=== PATIENT | female | born 1975 | race African-American/Black ===

== ENCOUNTER 2018-08-21 13:27 | Emergency (ER) | payer MEDICAID, OTHER ==
[2018-08-21] MEDS ORDERED: Ketorolac 60 MG/2 ML SDV IM ONE (14:30)
--- NOTE | 2018-08-21 14:30 | EDM.PDOC ---
ED HPI GENERAL MEDICAL PROBLEM - General Chief Complaint: Abdominal Pain Stated Complaint: RIGHT ABDOMINAL PAIN Time Seen by Provider: 08/21/18 13:40 Source of Information: Reports: Patient History Limitations: Reports: No Limitations - History of Present Illness Onset Date: 08/09/18 Onset Time: 09:00 Duration: Intermittent Location: Reports: Abdomen (rlq pain/sight suprapubic region) Quality: Reports: Ache, Dull Severity: Mild Improves with: Reports: None Worsens with: Reports: None Associated Symptoms: Reports: No Other Symptoms, Other (no vaginal discharge or odor). Denies: Fever/Chills, Nausea/Vomiting Right Lower Abdominal Pain Score (Numeric/FACES): 6 - Related Data Allergies Allergy/AdvReac Type Severity Reaction Status Date / Time No Known Allergies Allergy Verified 08/21/18 13:34 Home Meds: Home Meds . [No Known Home Meds] 08/21/18 [History] Past Medical History - Past Health History Medical/Surgical History: Denies Medical/Surgical History Social & Family History - Tobacco Use Smoking Status *Q: Never Smoker - Recreational Drug Use Recreational Drug Use: No ED ROS GENERAL - Review of Systems Review Of Systems: See Below Constitutional: Reports: No Symptoms. Denies: Fever, Chills, Weakness, Decreased Appetite HEENT: Reports: No Symptoms Respiratory: Reports: No Symptoms Cardiovascular: Reports: No Symptoms Endocrine: Reports: No Symptoms GI/Abdominal: Reports: Abdominal Pain (right upper suprapubic pain) : Reports: No Symptoms. Denies: Dysuria, Flank Pain Musculoskeletal: Reports: No Symptoms Skin: Reports: No Symptoms Neurological: Reports: No Symptoms Psychiatric: Reports: No Symptoms Hematologic/Lymphatic: Reports: No Symptoms Immunologic: Reports: No Symptoms ED EXAM, GI/ABD - Physical Exam Exam: See Below Exam Limited By: No Limitations General Appearance: Alert, WD/WN, No Apparent Distress Neck: Normal Inspection, Supple, Non-Tender, Full Range of Motion Respiratory/Chest: No Respiratory Distress, Lungs Clear, Normal Breath Sounds, No Accessory Muscle Use, Chest Non-Tender Cardiovascular: Normal Peripheral Pulses, Regular Rate, Rhythm, No Edema, No Gallop, No JVD, No Murmur, No Rub GI/Abdominal Exam: Normal Bowel Sounds, Soft, Non-Tender, No Organomegaly, No Distention, No Abnormal Bruit, No Mass, Pelvis Stable Back Exam: Normal Inspection, Full Range of Motion Extremities: Normal Inspection, Normal Range of Motion, Non-Tender, No Pedal Edema, Normal Capillary Refill Neurological: Alert, Oriented, Normal Cognition, Normal Gait, Normal Reflexes, No Motor/Sensory Deficits Psychiatric: Normal Affect, Normal Mood Skin Exam: Warm, Dry, Intact, Normal Color, No Rash Lymphatic: No Adenopathy Course - Vital Signs Last Recorded V/S: Last Vital Signs Temp 97.9 F 08/21/18 13:32 Pulse 95 08/21/18 13:32 Resp 16 08/21/18 13:32 BP 126/67 08/21/18 13:32 Pulse Ox 99 08/21/18 13:32 - Orders/Labs/Meds Orders: Active Orders 24 hr Category Date Time Status KUB [Abdomen 1V Flat] [CR] Stat Exams 08/21/18 13:55 Taken Labs: Laboratory Tests 08/21/18 08/21/18 Range/Units 13:35 13:35 Urine Color Yellow (Yellow) Urine Appearance Clear (Clear) Urine pH 5.5 (5.0-8.0) Ur Specific [place] > or = 1.030 (1.005-1.030) Urine Protein Negative (Negative) Urine Glucose (UA) Negative (Negative) Urine Ketones Trace H (Negative) Urine Occult Blood 2+ H (Negative) Urine Nitrite Negative (Negative) Urine Bilirubin Negative (Negative) Urine Urobilinogen 0.2 (0.2-1.0) Ur Leukocyte Esterase Negative (Negative) Urine RBC 0-5 (0-5) /hpf Urine WBC 0-5 (0-5) /hpf Ur Epithelial Cells 0-5 (0-5) /hpf Urine Bacteria Few (FEW) /hpf Urine Mucus Few (FEW) /hpf Urine HCG, Qual Negative (NEGATIVE) Meds: Medications Discontinued Medications Generic Name Dose Route Start Last Admin Trade Name Freq PRN Reason Stop Dose Admin Ketorolac Tromethamine 60 mg 08/21/18 14:30 08/21/18 14:47 Toradol IM 08/21/18 14:31 60 mg ONETIME ONE Administration Lactulose 20 gm 08/21/18 14:34 08/21/18 14:48 Cephulac PO 08/21/18 14:35 20 gm ONETIME ONE Administration - Re-Assessments/Exams Free Text/Narrative Re-Assessment/Exam: 08/21/18 14:53 Her urinalysis did have + 2 blood otherwise unremarkable. I am unable to obtain a ultrasound because her symptoms are not urgent. I will instruct her to follow-up with her equities trader for further evaluation. I feel that her pain is probably related to ovarian cysts. Differential diagnosis includes but are not limited to PID and STD ovarian cyst and UTI. Instructed patient returned from return for new or acutely worsening symptoms. Departure - Departure Time of Disposition: 14:55 Disposition: Home, Self-Care 01 Condition: Good Clinical Impression: Suprapubic pain - Discharge Information *PRESCRIPTION DRUG MONITORING PROGRAM REVIEWED*: Not Applicable *COPY OF PRESCRIPTION DRUG MONITORING REPORT IN PATIENT LAUREEN: Not Applicable Instructions: Abdominal Pain, Adult, Pelvic Pain, Female, Pain Without a Known Cause Referrals: PCP,None [Primary Care Provider] - Forms: ED Department Discharge Additional Instructions: Given diagnosed with suprapubic pain. I feel your pain is probably due to an ovarian cyst. Her KUB did reveal moderate constipation. You should follow-up with her PCP or equities trader. Return to the emergency room for any new or acutely worsening symptoms. - My Orders Last 24 Hours: My Active Orders 08/21/18 13:55 KUB [Abdomen 1V Flat] [CR] Stat - Assessment/Plan Last 24 Hours: My Active Orders 08/21/18 13:55 KUB [Abdomen 1V Flat] [CR] Stat
[2018-08-21] MEDS ORDERED: Lactulose Soln 10 GM/15 ML 30 ML UD Cup PO ONE (14:34)
--- NOTE | 2018-08-22 06:44 | CR ---
Abdomen: Supine view of the abdomen was obtained. Comparison: No previous abdominal x-ray. Bowel gas pattern is normal. Calcification is seen within the left pelvis compatible with phlebolith. Bony structures are unremarkable. Impression: 1. Unremarkable supine abdominal x-ray. Diagnostic code #1
== END 2018-08-21 15:00 | disposition home or self-care (01) ==
LOC: JD.ED 13:27
DX: R10.31 Right lower quadrant pain (principal)
CPT/HCPCS: 74018; 81001; 81025; 96372; 99284; A9270; J1885; 99283

== ENCOUNTER 2020-01-20 22:31 | Emergency (ER) | payer MEDICAID, OTHER ==
--- NOTE | 2020-01-20 23:07 | EDM.PDOC ---
ED HPI GENERAL MEDICAL PROBLEM - General Chief Complaint: Back Pain or Injury Stated Complaint: LOWER BACK PAIN Time Seen by Provider: 01/20/20 22:57 - History of Present Illness INITIAL COMMENTS - FREE TEXT/NARRATIVE: 44-year-old female presents the emergency room with low back pain. This started earlier this afternoon after the patient sneezed. The patient has had episodes like this back pain twice in the past the first time was after she changed some bed linens the second time was after she sneezed. The pain is in the lower lumbar area. It is worse on the right side. Patient denies any loss of bowel or bladder control. She has not had any abdominal pain nausea vomiting constipation or diarrhea. The patient denies and she is having her period at this time. Patient denies any other complaints. According to the patient she has been x-rayed for this in the past and it did not shown anything. Treatments CERTIFIED PATHOLOGY ASSISTANT: Reports: Other (see below) Other Treatments CERTIFIED PATHOLOGY ASSISTANT: motrin Lower Back Pain Score (Numeric/FACES): 10 - Related Data Allergies Allergy/AdvReac Type Severity Reaction Status Date / Time No Known Allergies Allergy Verified 08/21/18 13:34 Home Meds: Home Meds . [No Known Home Meds] 08/21/18 [History] Past Medical History - Past Health History Medical/Surgical History: Denies Medical/Surgical History - Past Surgical History Female Surgical History: Reports: Section Social & Family History - Tobacco Use Smoking Status *Q: Never Smoker - Caffeine Use Caffeine Use: Reports: Tea - Recreational Drug Use Recreational Drug Use: No ED ROS GENERAL - Review of Systems Review Of Systems: See Below Constitutional: Reports: No Symptoms HEENT: Reports: Other (Some URI symptoms yesterday and this seems to have resolved) Respiratory: Reports: No Symptoms, Other (She did sneeze yesterday this was thought to be related to her URI symptoms that have since resolved). Denies: Cough, Sputum Cardiovascular: Reports: No Symptoms Endocrine: Reports: No Symptoms GI/Abdominal: Reports: No Symptoms : Reports: No Symptoms Musculoskeletal: Reports: Back Pain Skin: Reports: No Symptoms Neurological: Reports: No Symptoms ED EXAM,LOWER BACK PAIN/INJURY - Physical Exam Exam: See Below Exam Limited By: No Limitations General Appearance: Alert, No Apparent Distress Head: Atraumatic, Normocephalic Neck: Normal Inspection, Supple, Non-Tender, Full Range of Motion Respiratory/Chest: No Respiratory Distress, Lungs Clear, Normal Breath Sounds Cardiovascular: Regular Rate, Rhythm, No Edema, No Murmur GI/Abdominal: Normal Bowel Sounds, Soft, Non-Tender Back Exam: Normal Inspection, Other (Right lumbar paraspinous muscle tenderness and some spasm. Palpation seems to elicit her pain.). No: Vertebral Tenderness Extremities: Normal Inspection, No Pedal Edema Course - Vital Signs Last Recorded V/S: Last Vital Signs Temp 36.4 C 01/20/20 22:48 Pulse 76 01/20/20 22:48 Resp 16 01/20/20 22:48 BP 119/76 01/20/20 22:48 Pulse Ox 99 01/20/20 22:48 - Orders/Labs/Meds Meds: Medications Discontinued Medications Generic Name Dose Route Start Last Admin Trade Name Ray PRN Reason Stop Dose Admin Ketorolac Tromethamine 30 mg 01/20/20 23:24 01/20/20 23:35 Toradol IM 01/20/20 23:25 30 mg ONETIME ONE Administration Ketorolac Tromethamine Confirm 01/20/20 23:34 Toradol Administered 01/20/20 23:35 Dose 30 mg .ROUTE .STK-MED ONE - Re-Assessments/Exams Free Text/Narrative Re-Assessment/Exam: 01/21/20 00:12 Patient received some Toradol 30 mg IM and is doing somewhat better. She would like to go home and get some rest. Departure - Departure Time of Disposition: 00:12 Disposition: Home, Self-Care 01 Clinical Impression: Low back pain - Discharge Information Referrals: PCP,None [Primary Care Provider] - Forms: ED Department Discharge Additional Instructions: Return to the emergency room with any questions problems or worsening symptoms. Starting tomorrow morning around 9 or 10:00 you can use ibuprofen as needed. Take the ibuprofen with meals. Follow-up in the hospital clinic this next week for recheck if needed their phone number is [phone]. Sepsis Event Note (ED) - Evaluation Sepsis Screening Result: No Definite Risk - Focused Exam Vital Signs: Vital Signs Temp Pulse Resp BP Pulse Ox 01/20/20 22:48 36.4 C 76 16 119/76 99
[2020-01-20] MEDS ORDERED: Ketorolac 30 MG/ML SDV IM ONE (23:24)
[2020-01-20] MEDS ORDERED: Ketorolac 30 MG/ML SDV ONE (23:34)
== END 2020-01-21 00:41 | disposition home or self-care (01) ==
LOC: JD.ED 22:31
DX: M54.5 Low back pain (principal); M62.830 Muscle spasm of back; Z98.890 Other specified postprocedural states
CPT/HCPCS: 96372; 99283; J1885

== ENCOUNTER 2020-06-29 10:38 | Emergency (ER) | payer MEDICAID, OTHER ==
--- NOTE | 2020-06-29 11:21 | EDM.PDOC ---
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 She has pain to her right shoulder and it radiates to her neck. She tells me she has a history of bulging discs in her neck. She has no numbness but she does have some tingling to her right shoulder and arm. She is right handed. She has no other injuries. Onset: Sudden Duration: Hour(s): (last night) Location: Reports: Neck, Upper Extremity, Right (shoulder) Quality: Reports: Sharp Severity: Moderate Improves with: Reports: Immobilization Worsens with: Reports: Movement Context: Reports: Trauma (moving a patient) Associated Symptoms: Reports: No Other Symptoms Right Shoulder Pain Score (Numeric/FACES): 9 - Related Data Allergies Allergy/AdvReac Type Severity Reaction Status Date / Time No Known Allergies Allergy Verified 06/29/20 10:52 Home Meds: Home Meds Cyclobenzaprine [Flexeril] 10 mg PO TID PRN #20 tab 06/29/20 [Rx] Past Medical History - Past Health History Medical/Surgical History: Denies Medical/Surgical History - Past Surgical History Female Surgical History: Reports: Section Social & Family History - Tobacco Use Tobacco Use Status *Q: Never Tobacco User Second Hand Smoke Exposure: No - Caffeine Use Caffeine Use: Reports: Coffee - Recreational Drug Use Recreational Drug Use: No Review of Systems - Review of Systems Review Of Systems: See Below Constitutional: Reports: No Symptoms Eyes: Reports: No Symptoms Ears: Reports: No Symptoms Nose: Reports: No Symptoms Mouth/Throat: Reports: No Symptoms Respiratory: Reports: No Symptoms Cardiovascular: Reports: No Symptoms GI/Abdominal: Reports: No Symptoms Genitourinary: Reports: No Symptoms Musculoskeletal: Reports: Neck Pain, Shoulder Pain (right) Neurological: Reports: No Symptoms ED EXAM, GENERAL - Physical Exam Exam: See Below Exam Limited By: No Limitations General Appearance: Alert, No Apparent Distress Ears: Normal External Exam Nose: Normal Inspection Head: Atraumatic, Normocephalic Neck: Tender Lateral (right side) Respiratory/Chest: No Respiratory Distress Extremities: Other (Pain upon palpation to the right shoulder. Good sensation and pulses distally.) Course - Vital Signs Last Recorded V/S: Last Vital Signs Temp 98.0 F 06/29/20 10:49 Pulse 80 06/29/20 10:49 Resp 18 06/29/20 10:49 BP 123/68 06/29/20 10:49 Pulse Ox 100 06/29/20 10:49 - Orders/Labs/Meds Orders: Active Orders 24 hr Category Date Time Status Shoulder Comp Rt [CR] Stat Exams 06/29/20 11:02 Taken - Re-Assessments/Exams Free Text/Narrative Re-Assessment/Exam: 06/29/20 11:44 I ordered an x-ray of her shoulder and there is nothing acute. I will get her on some flexeril and antiinflammatories. Departure - Departure Time of Disposition: 11:45 Disposition: Home, Self-Care 01 Condition: Good Clinical Impression: Right shoulder strain Qualifiers: Encounter type: initial encounter Qualified Code(s): S46.911A - Strain of unspecified muscle, fascia and tendon at shoulder and upper arm level, right arm, initial encounter Cervical strain, acute Qualifiers: Encounter type: initial encounter Qualified Code(s): S16.1XXA - Strain of muscle, fascia and tendon at neck level, initial encounter - Discharge Information *PRESCRIPTION DRUG MONITORING PROGRAM REVIEWED*: Not Applicable *COPY OF PRESCRIPTION DRUG MONITORING REPORT IN PATIENT LAUREEN: Not Applicable Prescriptions: Cyclobenzaprine [Flexeril] 10 mg PO TID PRN #20 tab PRN Reason: Pain Referrals: PCP,None [Primary Care Provider] - Nicolasa Rodriguez NP [Nurse Practitioner] - 1 Week Forms: ED Department Discharge, ED Return to Work/School Form Additional Instructions: Ice your shoulder and neck for 15 minutes 3 times per day for 2 days. Take flexeril 10mg every 8 hours as needed for pain. Also take motrin or aleve for pain. Please return if you are worse. Follow up with Nicolasa Rodriguez within a week. Sepsis Event Note (ED) - Evaluation Sepsis Screening Result: No Definite Risk - Focused Exam Vital Signs: Vital Signs Temp Pulse Resp BP Pulse Ox 06/29/20 10:49 98.0 F 80 18 123/68 100 - My Orders Last 24 Hours: My Active Orders 06/29/20 11:02 Shoulder Comp Rt [CR] Stat - Assessment/Plan Last 24 Hours: My Active Orders 06/29/20 11:02 Shoulder Comp Rt [CR] Stat
--- NOTE | 2020-06-30 11:14 | CR ---
Right shoulder: 3 views of the right shoulder were obtained. Comparison: No previous study. Very small cortical bump is noted of the distal and inferior clavicle which is believed to be incidental. Acromioclavicular joint is otherwise unremarkable. Glenohumeral joint appears normal. No acute fracture, dislocation or other bony abnormality is appreciated. Impression: 1. Nothing acute is seen on 3 view right shoulder study. Diagnostic code #2
== END 2020-06-29 12:00 | disposition home or self-care (01) ==
LOC: JD.ED 10:38
DX: S46.911A Strain of unspecified muscle, fascia and tendon at shoulder and upper arm level, right arm, initial encounter (principal); S16.1XXA Strain of muscle, fascia and tendon at neck level, initial encounter; X50.9XXA Other and unspecified overexertion or strenuous movements or postures, initial encounter
CPT/HCPCS: 73030-26-RT; 73030-RT; 99283

== ENCOUNTER 2023-06-09 12:25 | Emergency (ER) | payer MEDICAID ==
[2023-06-09] MEDS ORDERED: Aspirin 81 MG Tab.Chew PO ONE (13:13)
[2023-06-09 13:35] LABS: BASOPHILS PERCENT AUTO 0.5 % (0.0-1.0); EOSINOPHILS ABSOLUTE AUTO 0.1 K/mm3 (0.0-0.4); EOSINOPHILS PERCENT AUTO 0.9 % (0.0-6.0); HEMATOCRIT 35.3 % (37.0-47.0); HEMOGLOBIN 11.9 gm/dl (12.0-16.0); IMMATURE GRAN ABSOLUTE AUTO 0.02 K/mm3 (0.00-0.05); IMMATURE GRAN PERCENT AUTO 0.3 % (0.0-0.4); LYMPHOCYTES ABSOLUTE AUTO 2.3 K/mm3 (1.0-4.8); LYMPHOCYTES PERCENT AUTO 39.4 % (24.0-44.0); MEAN CORPUSCULAR HEMOGLOBIN 30.7 pg (28.0-32.0); MEAN CORPUSCULAR HGB CONC 33.7 g/dl (32.0-36.0); MEAN PLATELET VOLUME 9.5 fl (9.4-12.3); MONOCYTES ABSOLUTE AUTO 0.4 K/mm3 (0.0-0.8); MONOCYTES PERCENT AUTO 7.2 % (0.0-8.0); NEUTROPHILS PERCENT AUTO 51.7 % (41.0-71.0); PLATELET COUNT,PLT 339 K/mm3 (150-400); RED BLOOD CELL COUNT 3.88 M/mm3 (4.10-5.30); WHITE BLOOD CELL COUNT,WBC 5.86 K/mm3 (3.9-11.3)
[2023-06-09 14:00] LABS: A/G RATIO 0.9 (1-2); ALANINE AMINOTRANSFERASE,ALT 10 U/L (14-59); ALBUMIN 3.5 g/dl (3.4-5.0); ALKALINE PHOSPHATASE 55 U/L (46-116); ANION GAP 11.7 (5-15); ASPARTATE AMNIOTRANSFERASE,AST 14 U/L (15-37); BILIRUBIN TOTAL 0.6 mg/dL (0.2-1.0); BLOOD UREA NITROGEN,BUN 10 mg/dL (7-18); BUN/CREATININE RATIO 14.3 (14-18); CARBON DIOXIDE,CO2 27 mEq/L (21-32); CHLORIDE,CL 104 mEq/L (98-107); CREATININE 0.7 mg/dL (0.55-1.02); EST CRCL DRUG DOSING (CG) 78.58 mL/min; ESTIMATED GFR 107 mL/min (>60); GLUCOSE RANDOM 95 mg/dL (70-99); POTASSIUM,K 3.7 mEq/L (3.5-5.1); PROTEIN TOTAL,TP 7.5 g/dl (6.4-8.2); SODIUM,NA 139 mEq/L (136-145)
[2023-06-09 14:02] LABS: TROPONIN I HIGH SENSITIVITY < 4 pg/mL (<=51)
== END 2023-06-09 15:24 | disposition home or self-care (01) ==
LOC: JD.ED 12:25
DX: R07.89 Other chest pain (principal)
CPT/HCPCS: 36415; 71045; 71045-26; 80053; 84484; 85025; 85379; 93005; 99285; A9270-GY